=== PATIENT | female | born 1990 | race Caucasian/White ===

== ENCOUNTER 2020-08-04 20:44 | Emergency (ER) | payer OTHER ==
[~2020-08-04] VITALS: Ht 170.2 cm; Wt 63.5 kg
[~2020-08-04 20:44] MED LIST: PHENERGAN25 MG PO; PROTONIX40 MG PO; SPRINTEC1 TAB
[2020-08-04] MEDS ORDERED: SPRINTEC 28 DA1 EACH PO (21:42)
[2020-08-04] MEDS ORDERED: PERMETHRIN60 GM TOP (21:45)
[2020-08-04] MEDS ORDERED: IVERMECTIN3 MG PO (21:45)
[2020-08-04] MEDS ORDERED: BACTRIM DS TAB1 EACH PO (21:45)
== END 2020-08-04 21:48 | disposition home or self-care (01) ==
LOC: ER 20:44
DX: B86 Scabies (principal)

== ENCOUNTER 2020-08-28 21:20 | Emergency (ER) | payer OTHER ==
[~2020-08-28] VITALS: Ht 170.2 cm; Wt 63.5 kg
[~2020-08-28 21:20] MED LIST changes: +BACTRIM DS TAB1 EACH PO; +IVERMECTIN3 MG PO; +PERMETHRIN60 GM TOP; +SPRINTEC 28 DA1 EACH PO
[2020-08-28] MEDS ORDERED: CEFADROXIL500 MG PO (22:36)
[2020-08-28] MEDS ORDERED: ULTRACET PO (22:36)
== END 2020-08-28 22:47 | disposition home or self-care (01) ==
LOC: ER 21:20
DX: S60.052A Contusion of left little finger without damage to nail, initial encounter (principal); W22.8XXA Striking against or struck by other objects, initial encounter; Y93.89 Activity, other specified; Y92.89 Other specified places as the place of occurrence of the external cause; Y99.8 Other external cause status

== ENCOUNTER 2021-01-10 07:39 | Emergency (ER) | payer OTHER ==
[~2021-01-10] VITALS: Ht 170.2 cm; Wt 63.5 kg
[~2021-01-10 07:39] MED LIST changes: +CEFADROXIL500 MG PO; +ULTRACET PO
[2021-01-10] MEDS ORDERED: SPRINTEC 28 DA1 EACH PO (07:56)
== END 2021-01-10 08:48 | disposition home or self-care (01) ==
LOC: ER 07:39
DX: K64.4 Residual hemorrhoidal skin tags (principal)